=== PATIENT | male | born 1970 | race American Indian/Alaskan Native ===

== ENCOUNTER 2016-12-29 20:19 | Emergency (ER) | payer OTHER, MEDICAID ==
[2016-12-29 20:29] VITALS: BP 118/74
--- NOTE | 2016-12-29 21:36 | XRay Report ---
FINAL REPORT PROCEDURE: XR ANKLE 3 LT TECHNIQUE: LEFT ankle radiographs, AP, lateral, and oblique views. CPT 20994 HISTORY: LEFT ANKLE PAIN COMPARISON: No prior studies are available for comparison. FINDINGS: Fracture (s) and/or Dislocation(s): None. Alignment: Normal. Joint space(s): Normal. Soft tissues: Normal. Bone mineralization: Normal. Foreign bodies: None. Calcaneal spurring: None. IMPRESSION: Normal Examination.
--- NOTE | 2016-12-29 21:37 | XRay Report ---
FINAL REPORT PROCEDURE: XR SPINE LUMBOSACRAL 2-3V TECHNIQUE: Lumbar spine radiographs, frontal and lateral views. CPT 13337 HISTORY: LOWER BACK PAIN COMPARISON: No prior studies are available for comparison. FINDINGS: Alignment: Normal . Vertebral body heights/Disk spaces: Normal . Fracture(s): None . Facets: Normal . Bone mineralization: Normal . IMPRESSION: Normal Examination
[2016-12-29] MEDS ORDERED: TORADOL IM ONE (22:48)
[2016-12-29] MEDS ORDERED: DELTASONE PO ONE (22:52)
--- NOTE | 2016-12-29 22:52 | Emergency Department Report ---
ED Back Pain/Injury HPI - General Chief Complaint: Extremity Injury, Lower Stated Complaint: BACK/LEG PAIN Source: patient Limitations: No Limitations - History of Present Illness Initial Comments: 46-year-old -[place]ish male that's HIV positive has diabetes type 2 bipolar comes in status post fall at work yesterday. Patient reports he slipped on oil and water that was on the floor and fell landed on his back and buttocks. Patient now complains of back pain that radiates down both legs as well as left ankle pain. Patient reports that he is on triple risperidone Lamictal and Zyrtec and Flonase. Patient reports that he is a recovering addict and prefers not had any opiates. MD Complaint: back pain, fall -: days(s) (1) Similar Symptoms Previously: No Place: work Radiation: left leg, right leg Severity: severe Severity scale (0 -10): 9 Quality: burning, stabbing Consistency: constant Improves With: none Worsens With: sitting upright - Related Data Home Medications Medication Instructions Recorded Confirmed Last Taken Cetirizine HCl [ZyrTEC] 10 mg PO DAILY 12/29/16 12/29/16 1 Day Ago Efavirenz/Emtricitab/Tenofovir 1 each PO QDAY 12/29/16 12/29/16 12/29/16 [Atripla Tablet] Fluticasone [Flonase] 2 spray NS QDAY 12/29/16 12/29/16 12/29/16 Melatonin/Pyridoxine HCl (B6) 10 mg PO QHS 12/29/16 12/29/16 1 Day Ago [Melatonin 10 mg Tablet] lamoTRIgine [LaMICtal] 200 mg PO QDAY 12/29/16 12/29/16 12/29/16 risperiDONE [RisperDAL] 2 mg PO QHS 12/29/16 12/29/16 1 Day Ago Previous Rx's Medication Instructions Recorded Last Taken Type Naproxen [Naprosyn TAB] 500 mg PO BID #30 tablet 12/29/16 Unknown Rx methOCARBAMOL [Robaxin TAB] 500 mg PO BID #30 tab 12/29/16 Unknown Rx Allergies Allergy/AdvReac Type Severity Reaction Status Date / Time sulfamethoxazole Allergy Unknown Verified 12/29/16 20:35 [From Bactrim] trimethoprim [From Bactrim] Allergy Unknown Verified 12/29/16 20:35 ED Review of Systems ROS: Stated complaint: BACK/LEG PAIN Other details as noted in HPI Constitutional: denies: chills, fever Eyes: denies: eye pain, eye discharge, vision change ENT: denies: ear pain, throat pain Respiratory: denies: cough, shortness of breath, wheezing Cardiovascular: denies: chest pain, palpitations Endocrine: no symptoms reported Gastrointestinal: denies: abdominal pain, nausea, diarrhea Genitourinary: denies: urgency, dysuria Musculoskeletal: back pain, myalgia Skin: denies: rash, lesions Neurological: denies: headache, weakness, paresthesias Psychiatric: denies: anxiety, depression Hematological/Lymphatic: denies: easy bleeding, easy bruising ED Past Medical Hx - Past Medical History Hx Diabetes: Yes Hx Psychiatric Treatment: Yes (bipolar) Additional medical history: HIV - Surgical History Past Surgical History?: No - Social History Smoking Status: Unknown if ever smoked Substance Use Type: None - Medications Home Medications: Home Medications Medication Instructions Recorded Confirmed Last Taken Type Cetirizine HCl [ZyrTEC] 10 mg PO DAILY 12/29/16 12/29/16 1 Day Ago History Efavirenz/Emtricitab/Tenofovir 1 each PO QDAY 12/29/16 12/29/16 12/29/16 History [Atripla Tablet] Fluticasone [Flonase] 2 spray NS QDAY 12/29/16 12/29/16 12/29/16 History Melatonin/Pyridoxine HCl (B6) 10 mg PO QHS 12/29/16 12/29/16 1 Day Ago History [Melatonin 10 mg Tablet] Naproxen [Naprosyn TAB] 500 mg PO BID #30 tablet 12/29/16 Unknown Rx lamoTRIgine [LaMICtal] 200 mg PO QDAY 12/29/16 12/29/16 12/29/16 History methOCARBAMOL [Robaxin TAB] 500 mg PO BID #30 tab 12/29/16 Unknown Rx risperiDONE [RisperDAL] 2 mg PO QHS 12/29/16 12/29/16 1 Day Ago History ED Physical Exam - General Limitations: No Limitations General appearance: alert, in no apparent distress - Head Head exam: Present: atraumatic - Eye Eye exam: Present: normal appearance, PERRL, EOMI - ENT ENT exam: Present: normal exam, mucous membranes moist - Neck Neck exam: Present: normal inspection - Respiratory Respiratory exam: Present: normal lung sounds bilaterally - Cardiovascular Cardiovascular Exam: Present: regular rate, normal rhythm - GI/Abdominal GI/Abdominal exam: Absent: soft, tenderness - Extremities Exam Extremities exam: Present: normal inspection, full ROM - Back Exam Back exam: Present: normal inspection, full ROM, muscle spasm, paraspinal tenderness, vertebral tenderness (sacral coccyx) - Neurological Exam Neurological exam: Present: alert, oriented X3, CN II-XII intact - Psychiatric Psychiatric exam: Present: normal affect, normal mood - Skin Skin exam: Present: warm, dry, intact, normal color ED Course Vital Signs 12/29/16 12/29/16 20:28 20:30 Temperature 98.8 F 98.8 F Pulse Rate 68 68 Respiratory 18 18 Rate Blood Pressure 118/74 Blood Pressure 118/74 [Right] O2 Sat by Pulse 96 100 Oximetry - Reevaluation(s) Reevaluation #1: 12/29/16 23:28 Patient reports that the pain has improved since having the Toradol injection. ED Medical Decision Making - Medical Decision Making Patient has been evaluated by this provider fast track. Discussed with patient that his x-rays came back within normal limits. Discussed the patient we'll give him a Toradol injection to help with this pain as well as a prednisone one tablet to help with the inflammation. Discussed with patient that we would discharge him on Robaxin and naproxen for his back pain. Also recommend patient to take warm Epsom salt baths to help with the relief of his back pains. Discussed the patient we'll give him a work excuse until the for him to rest as much as possible Critical care attestation.: If time is entered above; I have spent that time in minutes in the direct care of this critically ill patient, excluding procedure time. ED Disposition Clinical Impression: Back pain with left-sided radiculopathy, Back pain with right-sided radiculopathy Fall Qualifiers: Encounter type: initial encounter Qualified Code(s): W19.XXXA - Unspecified fall, initial encounter Disposition: DISCHARGED TO HOME OR SELFCARE Is pt being admited?: No Does the pt Need Aspirin: No Condition: Stable Instructions: Fall Prevention (ED), Acute Low Back Pain (ED), Low Back Strain ( ED) Additional Instructions: Take pain medication as prescribed. Follow up with her primary care provider. The expected to have some discomfort for the next couple days. Also recommend warm hot soaks with Epsom salts may help with her back pain as well. Prescriptions: methOCARBAMOL [Robaxin TAB] 500 mg PO BID #30 tab Naproxen [Naprosyn TAB] 500 mg PO BID #30 tablet Referrals: PRIMARY MD JAVIER [Primary Care Provider] - 3-5 Days POLLO SOSA MD [Staff Physician] - 3-5 Days Forms: Work/School Release Form(ED)
== END 2016-12-29 23:38 | disposition home or self-care (01) ==
LOC: ED 20:19
DX: M54.16 Radiculopathy, lumbar region (principal); E11.9 Type 2 diabetes mellitus without complications; F31.9 Bipolar disorder, unspecified; Z88.2 Allergy status to sulfonamides; Z88.8 Allergy status to other drugs, medicaments and biological substances; W01.0XXA Fall on same level from slipping, tripping and stumbling without subsequent striking against object, initial encounter; Y93.89 Activity, other specified; Y92.89 Other specified places as the place of occurrence of the external cause; Y99.8 Other external cause status
CPT/HCPCS: 72100; 73610; 96372; 99283; J1885; J7512

== ENCOUNTER 2017-04-17 22:39 | Emergency (ER) | payer MEDICAID, OTHER ==
[2017-04-18 00:03] LABS: Basophils % (Auto) 0.4 % (0.0-1.8); Eosinophils % (Auto) 1.5 % (0.0-4.3); Hematocrit 40.5 % (35.5-45.6); Hemoglobin 13.4 gm/dl (11.8-15.2); Mean Corpuscular HGB Conc 33 % (32-34); Mean Corpuscular Hemoglobin 27 pg (28-32); Mean Corpuscular Volume 82 fl (84-94); Platelet Count 306 K/mm3 (140-440); Red Blood Count 4.95 M/mm3 (3.65-5.03); Red Cell Distribution Width 15.7 % (13.2-15.2); White Blood Count 14.6 K/mm3 (4.5-11.0)
[2017-04-18 00:23] LABS: Anion Gap 23 mmol/L; BUN/Creatinine Ratio 12.85; Blood Urea Nitrogen 9 mg/dL (9-20); Calcium 9.3 mg/dL (8.4-10.2); Carbon Dioxide 20 mmol/L (22-30); Chloride 95.4 mmol/L (98-107); Glucose 74 mg/dL (75-100); Potassium 4.5 mmol/L (3.6-5.0); Sodium 134 mmol/L (137-145)
[2017-04-18] MEDS ORDERED: NACL 0.9% 1000 ML 1,000 ML IV ONE (00:43)
[2017-04-18] MEDS ORDERED: MOTRIN PO ONE (00:43)
[2017-04-18 00:50] LABS: Urine Drugs of Abuse Note Disclamer
--- NOTE | 2017-04-18 01:07 | Emergency Department Report ---
ED Psych HPI - General Chief Complaint: Psych Stated Complaint: MH Time Seen by Provider: 04/17/17 22:54 Source: patient, family Mode of arrival: Ambulatory Limitations: Other - History of Present Illness Initial Comments: 47-year-old male with a past medical history of diabetes, bipolar disease, and HIV with undetectable viral load presents to the hospital with complaints of manic episodes 4 days. Patient is accompanied by his family members who state that patient has not been eating, sleeping, and has been exhibiting erratic behavior the past 4 days. I also suspect he has been noncompliant with his medications 4 days. Patient denies suicidal ideation, homicidal ideation, or hallucinations. Complains of right lower back pain which is ongoing since injury several months ago. Patient states he is currently taking tramadol but he does not want that medication anymore since it is a "habit-forming narcotic. " Patient states he is taking his medications which contradicts the family's history. Patient often goes on unrelated tangents when asked direct questions. - Related Data Home Medications Medication Instructions Recorded Confirmed Last Taken Cetirizine HCl [ZyrTEC] 10 mg PO DAILY 12/29/16 04/17/17 04/16/17 Efavirenz/Emtricitab/Tenofovir 1 each PO QDAY 12/29/16 04/17/17 04/16/17 [Atripla Tablet] Fluticasone [Flonase] 2 spray NS QDAY 12/29/16 04/17/17 04/16/17 Melatonin/Pyridoxine HCl (B6) 10 mg PO QHS 12/29/16 04/17/17 04/16/17 [Melatonin 10 mg Tablet] lamoTRIgine [LaMICtal] 200 mg PO QDAY 12/29/16 04/18/17 04/17/17 risperiDONE [RisperDAL] 2 mg PO QHS 12/29/16 04/18/17 04/17/17 Previous Rx's Medication Instructions Recorded Last Taken Type Naproxen [Naprosyn TAB] 500 mg PO BID #30 tablet 12/29/16 04/17/17 Rx methOCARBAMOL [Robaxin TAB] 500 mg PO BID #30 tab 12/29/16 04/17/17 Rx Allergies Allergy/AdvReac Type Severity Reaction Status Date / Time sulfamethoxazole Allergy Unknown Verified 12/29/16 20:35 [From Bactrim] trimethoprim [From Bactrim] Allergy Unknown Verified 12/29/16 20:35 ED Review of Systems ROS: Stated complaint: MH Other details as noted in HPI Comment: All other systems reviewed and negative Other: Constitutional: No fevers chills or weight loss Eyes: No eye pain visual changes or discharge ENT: No ear pain or throat pain Neck: Denies pain Respiratory: Denies cough wheezing shortness of breath Cardiovascular: Denies chest pain, palpitations, syncope GI: Denies abdominal pain, nausea, vomiting, diarrhea : Denies dysuria Musculoskeletal: As per HPI Skin: Denies rash, lesions, erythema Neurologic: Denies headache, numbness, weakness Psychiatric: Denies suicidal ideation, hallucinations ED Past Medical Hx - Past Medical History Previous Medical History?: Yes Hx Diabetes: Yes Hx Psychiatric Treatment: Yes (bipolar) Additional medical history: HIV - Surgical History Past Surgical History?: No - Social History Smoking Status: Never Smoker - Medications Home Medications: Home Medications Medication Instructions Recorded Confirmed Last Taken Type Cetirizine HCl [ZyrTEC] 10 mg PO DAILY 12/29/16 04/17/17 04/16/17 History Efavirenz/Emtricitab/Tenofovir 1 each PO QDAY 12/29/16 04/17/17 04/16/17 History [Atripla Tablet] Fluticasone [Flonase] 2 spray NS QDAY 12/29/16 04/17/17 04/16/17 History Melatonin/Pyridoxine HCl (B6) 10 mg PO QHS 12/29/16 04/17/17 04/16/17 History [Melatonin 10 mg Tablet] Naproxen [Naprosyn TAB] 500 mg PO BID #30 tablet 12/29/16 04/18/17 04/17/17 Rx lamoTRIgine [LaMICtal] 200 mg PO QDAY 12/29/16 04/18/17 04/17/17 History methOCARBAMOL [Robaxin TAB] 500 mg PO BID #30 tab 12/29/16 04/18/17 04/17/17 Rx risperiDONE [RisperDAL] 2 mg PO QHS 12/29/16 04/18/17 04/17/17 History ED Physical Exam - General Limitations: No Limitations - Other Other exam information: General: No limitations, patient is alert in no acute distress Head exam: Atraumatic, normocephalic Eyes exam: Normal appearance, pupils equal reactive to light ENT: Moist mucous membrane, normal oropharynx Neck exam: Normal inspection, full range of motion, no meningismus nontender Respiratory exam: Clear to auscultation bilateral, no wheezes, rales, crackles Cardiovascular: Normal rate and rhythm, normal heart sounds Abdomen: Soft, nondistended, and nontender, with normal bowel sounds, no rebound, or guarding Extremity: Full range of motion normal inspection no deformity Back: Normal Inspection, full range of motion, right lower back/sacral tenderness. No midline tenderness Neurologic: Alert, oriented x3, cranial nerves intact, no motor or sensory deficit Psychiatric: Cooperative, noncombative, tangential thoughts Skin: Warm, dry, intact ED Course Vital Signs 04/17/17 23:38 Temperature 98.9 F Pulse Rate 98 H Respiratory 18 Rate Blood Pressure 131/71 [Left] O2 Sat by Pulse 98 Oximetry - Reevaluation(s) Reevaluation #1: 04/18/17 01:15 Current medicines be continued. ED Medical Decision Making - Lab Data Result diagrams: 04/17/17 23:42 04/17/17 23:42 Lab Results 04/17/17 04/17/17 04/17/17 Range/Units 23:35 23:38 23:42 WBC (4.5-11.0) K/mm3 RBC (3.65-5.03) M/mm3 Hgb (11.8-15.2) gm/dl Hct (35.5-45.6) % MCV (84-94) fl MCH (28-32) pg MCHC (32-34) % RDW (13.2-15.2) % Plt Count (140-440) K/mm3 Lymph % (Auto) (13.4-35.0) % [place] % (Auto) (0.0-7.3) % Eos % (Auto) (0.0-4.3) % Baso % (Auto) (0.0-1.8) % Lymph # (1.2-5.4) K/mm3 [place] # (0.0-0.8) K/mm3 Eos # (0.0-0.4) K/mm3 Baso # (0.0-0.1) K/mm3 Seg Neutrophils % (40.0-70.0) % Seg Neutrophils # (1.8-7.7) K/mm3 Sodium 134 L (137-145) mmol/L Potassium 4.5 (3.6-5.0) mmol/L Chloride 95.4 L (98-107) mmol/L Carbon Dioxide 20 L (22-30) mmol/L Anion Gap 23 mmol/L BUN 9 (9-20) mg/dL Creatinine 0.7 L (0.8-1.5) mg/dL Estimated GFR > 60 ml/min BUN/Creatinine Ratio 12.85 % Glucose 74 L (75-100) mg/dL Calcium 9.3 (8.4-10.2) mg/dL Urine Color Yellow (Yellow) Urine Turbidity Clear (Clear) Urine pH 5.0 (5.0-7.0) Ur Specific [place] 1.008 (1.003-1.030) Urine Protein <15 mg/dl (Negative) mg/dL Urine Glucose (UA) Neg (Negative) mg/dL Urine Ketones 20 (Negative) mg/dL Urine Blood Mod (Negative) Urine Nitrite Neg (Negative) Urine Bilirubin Neg (Negative) Urine Urobilinogen < 2.0 (<2.0) mg/dL Ur Leukocyte Esterase Tr (Negative) Urine WBC (Auto) 1.0 (0.0-6.0) /HPF Urine RBC (Auto) 3.0 (0.0-6.0) /HPF U Epithel Cells (Auto) < 1.0 (0-13.0) /HPF Urine Mucus Few /HPF Urine Opiates Screen Presumptive negative Urine Methadone Screen Presumptive negative Ur Barbiturates Screen Presumptive negative Ur Phencyclidine Scrn Presumptive negative Ur Amphetamines Screen Presumptive negative U Benzodiazepines Scrn Presumptive negative Urine Cocaine Screen Presumptive negative U Marijuana (THC) Screen Presumptive negative Plasma/Serum Alcohol (0-0.07) gm% 04/17/17 04/17/17 Range/Units 23:42 23:42 WBC 14.6 H (4.5-11.0) K/mm3 RBC 4.95 (3.65-5.03) M/mm3 Hgb 13.4 (11.8-15.2) gm/dl Hct 40.5 (35.5-45.6) % MCV 82 L (84-94) fl MCH 27 L (28-32) pg MCHC 33 (32-34) % RDW 15.7 H (13.2-15.2) % Plt Count 306 (140-440) K/mm3 Lymph % (Auto) 17.6 (13.4-35.0) % [place] % (Auto) 8.0 H (0.0-7.3) % Eos % (Auto) 1.5 (0.0-4.3) % Baso % (Auto) 0.4 (0.0-1.8) % Lymph # 2.6 (1.2-5.4) K/mm3 [place] # 1.2 H (0.0-0.8) K/mm3 Eos # 0.2 (0.0-0.4) K/mm3 Baso # 0.1 (0.0-0.1) K/mm3 Seg Neutrophils % 72.5 H (40.0-70.0) % Seg Neutrophils # 10.5 H (1.8-7.7) K/mm3 Sodium (137-145) mmol/L Potassium (3.6-5.0) mmol/L Chloride (98-107) mmol/L Carbon Dioxide (22-30) mmol/L Anion Gap mmol/L BUN (9-20) mg/dL Creatinine (0.8-1.5) mg/dL Estimated GFR ml/min BUN/Creatinine Ratio % Glucose (75-100) mg/dL Calcium (8.4-10.2) mg/dL Urine Color (Yellow) Urine Turbidity (Clear) Urine pH (5.0-7.0) Ur Specific [place] (1.003-1.030) Urine Protein (Negative) mg/dL Urine Glucose (UA) (Negative) mg/dL Urine Ketones (Negative) mg/dL Urine Blood (Negative) Urine Nitrite (Negative) Urine Bilirubin (Negative) Urine Urobilinogen (<2.0) mg/dL Ur Leukocyte Esterase (Negative) Urine WBC (Auto) (0.0-6.0) /HPF Urine RBC (Auto) (0.0-6.0) /HPF U Epithel Cells (Auto) (0-13.0) /HPF Urine Mucus /HPF Urine Opiates Screen Urine Methadone Screen Ur Barbiturates Screen Ur Phencyclidine Scrn Ur Amphetamines Screen U Benzodiazepines Scrn Urine Cocaine Screen U Marijuana (THC) Screen Plasma/Serum Alcohol < 0.01 (0-0.07) gm% - Medical Decision Making Patient states he is taking his medications however, family states he has not has medications to 4 days. Patient goals often unrelated tenderness with direct questions. Based on his current presentation and behavior as reported to family, 1013 and transfer form will be signed and patient will be transferred to psychiatric facility. 1 L normal saline ordered for mild hyponatremia/hypochloremia. - Differential Diagnosis bipolar, psychosis, medication noncompliance Critical Care Time: No Critical care attestation.: If time is entered above; I have spent that time in minutes in the direct care of this critically ill patient, excluding procedure time. ED Disposition Clinical Impression: Manic episode, HIV (human immunodeficiency virus infection), Medical clearance for psychiatric admission Disposition: [id number]/[id number] PSY HOSP/PSY UNIT Is pt being admited?: No Does the pt Need Aspirin: No Condition: Stable Time of Disposition: 01:07 (awaiting acceptance)
[2017-04-18 01:09] LABS: Bilirubin,Urine NEG (Negative); Blood,Urine MOD (Negative); Ketones,Urine 20 mg/dL (Negative); Leukocyte Esterase,Urine TR (Negative); Mucus,Urine FEW /HPF; Nitrite,Urine NEG (Negative); Protein,Urine <15 mg/dL mg/dL (Negative); Urobilinogen,Urine < 2.0 mg/dL (<2.0)
[2017-04-18] MEDS ORDERED: RisperDAL PO ONE (01:15)
[2017-04-18] MEDS ORDERED: LaMICtal PO SCH (10:00)
[2017-04-18] MEDS ORDERED: NAPROSYN PO SCH (10:00)
[2017-04-18] MEDS ORDERED: ROBAXIN PO SCH (10:00)
[2017-04-18] MEDS ORDERED: CLARITIN PO SCH (10:00)
[2017-04-18] MEDS ORDERED: FLONASE NS SCH (10:00)
[2017-04-18] MEDS ORDERED: ATRIPLA (NF) PO SCH ×2 (10:00)
[2017-04-18 11:40] VITALS: BP 120/78
--- NOTE | 2017-04-18 14:30 | Consultation ---
History of Present Illness - Reason for Consult Consult date: 04/18/17 Reason for consult: psychiatric evaluation - Chief Complaint Chief complaint: "I fell at work." 47-year-old male seen for psychiatric evaluation. He has a past medical history of diabetes, bipolar disease, and HIV with undetectable viral load. He presented to the hospital with complaints of manic episodes 4 days. Per the record, the patient was accompanied by his family members who stated that patient has not been eating, sleeping, and has been exhibiting erratic behavior the past 4 days. He has to be redirected frequently to complete the interview. He was tangential in discussing how he thinks tramadol made him manic. He repeatedly stated he did not want tramadol or any narcotics. He reports being 10 years sober from alcohol. His usual medications are Risperdal 2mg hs and lamictal 200mg daily. No psychotic symptoms currently. Medications and Allergies Allergies Allergy/AdvReac Type Severity Reaction Status Date / Time sulfamethoxazole Allergy Unknown Verified 12/29/16 20:35 [From Bactrim] trimethoprim [From Bactrim] Allergy Unknown Verified 12/29/16 20:35 Home Medications Medication Instructions Recorded Confirmed Last Taken Type Cetirizine HCl [ZyrTEC] 10 mg PO DAILY 12/29/16 04/17/17 04/16/17 History Efavirenz/Emtricitab/Tenofovir 1 each PO QDAY 12/29/16 04/17/17 04/16/17 History [Atripla Tablet] Fluticasone [Flonase] 2 spray NS QDAY 12/29/16 04/17/17 04/16/17 History Melatonin/Pyridoxine HCl (B6) 10 mg PO QHS 12/29/16 04/17/17 04/16/17 History [Melatonin 10 mg Tablet] Naproxen [Naprosyn TAB] 500 mg PO BID #30 tablet 12/29/16 04/18/17 04/17/17 Rx lamoTRIgine [LaMICtal] 200 mg PO QDAY 12/29/16 04/18/17 04/17/17 History methOCARBAMOL [Robaxin TAB] 500 mg PO BID #30 tab 12/29/16 04/18/17 04/17/17 Rx risperiDONE [RisperDAL] 2 mg PO QHS 12/29/16 04/18/17 04/17/17 History Past psychiatric history - Past Medical History Past Medical History: diabetes, hepatitis, HIV/AIDS - past Psychiatric treatment and history Psych: Bipolar psychiatric treatment history: 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 UDS and ETOH negative) Mental Status Exam - Vital signs Last Vital Signs Temp 98.4 F 04/18/17 10:00 Pulse 101 H 04/18/17 10:00 Resp 18 04/18/17 10:00 BP 120/78 04/18/17 10:00 Pulse Ox 99 04/18/17 10:00 - Exam Orientation: time, place, person Affect: other (expansive) Mood: euphoric Thought content: other (overinclusive) Thought Process: Circumstantial, Tangential Perceptions: none Speech: pressured Concentration: unable to pay attention Motor activity: restless Level of consciousness: alert Memory: Intact Sleep Symptoms: Insomnia Interaction: cooperative Results Result Diagrams: 04/17/17 23:42 04/17/17 23:42 Abnormal lab results 04/17/17 04/17/17 Range/Units 23:42 23:42 WBC 14.6 H (4.5-11.0) K/mm3 MCV 82 L (84-94) fl MCH 27 L (28-32) pg RDW 15.7 H (13.2-15.2) % [place] % (Auto) 8.0 H (0.0-7.3) % [place] # 1.2 H (0.0-0.8) K/mm3 Seg Neutrophils % 72.5 H (40.0-70.0) % Seg Neutrophils # 10.5 H (1.8-7.7) K/mm3 Sodium 134 L (137-145) mmol/L Chloride 95.4 L (98-107) mmol/L Carbon Dioxide 20 L (22-30) mmol/L Creatinine 0.7 L (0.8-1.5) mg/dL Glucose 74 L (75-100) mg/dL All other labs normal. Assessment and Plan Assessment and plan: Impression: bipolar 1, current episode manic no suicidal or homicidal ideation present but clearly needs stabilization of mood Recommendation: Transfer to inpatient psychiatric facility. Continue home medications.
[2017-04-18] MEDS ORDERED: PYRIDOXINE HCL PO SCH (22:00)
[2017-04-18] MEDS ORDERED: MELATONIN PO SCH (22:00)
[2017-04-18] MEDS ORDERED: RisperDAL PO SCH (22:00)
== END 2017-04-18 13:22 ==
LOC: ED 22:39
DX: F31.9 Bipolar disorder, unspecified (principal); M54.5 Low back pain; E11.9 Type 2 diabetes mellitus without complications; Z88.2 Allergy status to sulfonamides; Z88.1 Allergy status to other antibiotic agents
CPT/HCPCS: 36415; 80048; 80307; 81001; 85025; 96360; 99285; G0480; J7030; 80320

== ENCOUNTER 2022-01-08 18:36 | Emergency (ER) | payer MEDICAID ==
[2022-01-08 20:34] LABS: Basophils # (Auto) 0.1 K/mm3 (0.0-0.1); Basophils % (Auto) 0.5 % (0.0-1.8); Eosinophils % (Auto) 0.2 % (0.0-4.3); Hematocrit 44.6 % (35.5-45.6); Hemoglobin 14.3 gm/dl (11.8-15.2); Lymphocytes # (Auto) 2.7 K/mm3 (1.2-5.4); Lymphocytes % (Auto) 15.5 % (13.4-35.0); Mean Corpuscular HGB Conc 32 % (32-34); Mean Corpuscular Volume 82 fl (84-94); Monocytes # (Auto) 1.1 K/mm3 (0.0-0.8); Monocytes % (Auto) 6.2 % (0.0-7.3); Platelet Count 365 K/mm3 (140-440); Red Blood Count 5.43 M/mm3 (3.65-5.03); Red Cell Distribution Width 15.6 % (13.2-15.2)
[2022-01-08 20:52] LABS: BUN/Creatinine Ratio 10; Blood Urea Nitrogen 10 mg/dL (9-20); Calcium 9.3 mg/dL (8.4-10.2); Hemolysis Index 4
--- NOTE | 2022-01-08 21:47 | Emergency Department Report ---
ED Psych HPI - General Chief Complaint: Altered Mental Status Stated Complaint: BIPOLAR EPISODE Time Seen by Provider: 01/08/22 19:27 Source: patient Mode of arrival: Ambulatory - History of Present Illness Initial Comments: pt has history of psychosis meds were recenlt changed reports hallucination but no SI or HI , Complaint: other -: days(s) Associated Psychiatric Symptoms: auditory hallucinations History of same: Yes Quality: intermittent Context: new medication(s) Associated Symptoms: denies: denies other symptoms, confusion, headache - Related Data Home Medications Medication Instructions Recorded Confirmed Last Taken Cetirizine HCl [ZyrTEC] 10 mg PO DAILY 12/29/16 04/17/17 04/16/17 Efavirenz/Emtricit/Tenofovr Df 1 each PO QDAY 12/29/16 04/17/17 04/16/17 [Atripla Tablet] Fluticasone [Flonase] 2 spray NS QDAY 12/29/16 04/17/17 04/16/17 Melatonin/Pyridoxine HCl (B6) 10 mg PO QHS 12/29/16 04/17/17 04/16/17 [Melatonin 10 mg Tablet] lamoTRIgine [LaMICtal] 200 mg PO QDAY 12/29/16 04/18/17 04/17/17 risperiDONE [RisperDAL] 2 mg PO QHS 12/29/16 04/18/17 04/17/17 Previous Rx's Medication Instructions Recorded Last Taken Type Naproxen [Naprosyn TAB] 500 mg PO BID #30 tablet 12/29/16 04/17/17 Rx methOCARBAMOL [Robaxin TAB] 500 mg PO BID #30 tab 12/29/16 04/17/17 Rx Allergies Allergy/AdvReac Type Severity Reaction Status Date / Time sulfamethoxazole Allergy Unknown Verified 12/29/16 20:35 [From Bactrim] trimethoprim [From Bactrim] Allergy Unknown Verified 12/29/16 20:35 ED Review of Systems ROS: Stated complaint: BIPOLAR EPISODE Other details as noted in HPI Constitutional: denies: chills, fever Eyes: denies: eye pain, eye discharge, vision change ENT: denies: ear pain, throat pain Respiratory: denies: cough, shortness of breath, wheezing Cardiovascular: denies: chest pain, palpitations Endocrine: no symptoms reported Gastrointestinal: denies: abdominal pain, nausea, diarrhea Genitourinary: denies: urgency, dysuria Musculoskeletal: denies: back pain, joint swelling, arthralgia Skin: denies: rash, lesions Neurological: denies: headache, weakness, paresthesias Psychiatric: denies: anxiety, depression Hematological/Lymphatic: denies: easy bleeding, easy bruising ED Past Medical Hx - Past Medical History Hx Diabetes: Yes Hx Psychiatric Treatment: Yes (bipolar) Additional medical history: HIV - Social History Smoking Status: Former Smoker - Medications Home Medications: Home Medications Medication Instructions Recorded Confirmed Last Taken Type Cetirizine HCl [ZyrTEC] 10 mg PO DAILY 12/29/16 04/17/17 04/16/17 History Efavirenz/Emtricit/Tenofovr Df 1 each PO QDAY 12/29/16 04/17/17 04/16/17 History [Atripla Tablet] Fluticasone [Flonase] 2 spray NS QDAY 12/29/16 04/17/17 04/16/17 History Melatonin/Pyridoxine HCl (B6) 10 mg PO QHS 12/29/16 04/17/17 04/16/17 History [Melatonin 10 mg Tablet] Naproxen [Naprosyn TAB] 500 mg PO BID #30 tablet 12/29/16 04/18/17 04/17/17 Rx lamoTRIgine [LaMICtal] 200 mg PO QDAY 12/29/16 04/18/17 04/17/17 History methOCARBAMOL [Robaxin TAB] 500 mg PO BID #30 tab 12/29/16 04/18/17 04/17/17 Rx risperiDONE [RisperDAL] 2 mg PO QHS 12/29/16 04/18/17 04/17/17 History ED Physical Exam - General Limitations: Altered Mental Status General appearance: alert, in no apparent distress - Head Head exam: Present: atraumatic, normocephalic - Eye Eye exam: Present: normal appearance - ENT ENT exam: Present: mucous membranes moist - Neck Neck exam: Present: normal inspection - Respiratory Respiratory exam: Present: normal lung sounds bilaterally. Absent: respiratory distress - Cardiovascular Cardiovascular Exam: Present: regular rate, normal rhythm. Absent: systolic murmur, diastolic murmur, rubs, gallop - GI/Abdominal GI/Abdominal exam: Present: soft, normal bowel sounds - Rectal Rectal exam: Present: deferred - Extremities Exam Extremities exam: Present: normal inspection - Back Exam Back exam: Present: normal inspection - Neurological Exam Neurological exam: Present: alert, oriented X3 - Psychiatric Psychiatric exam: Present: flat affect - Skin Skin exam: Present: warm, dry, intact, normal color. Absent: rash ED Course Vital Signs 01/08/22 01/08/22 01/08/22 19:13 20:01 20:16 Temperature 98.4 F 97.4 F L Pulse Rate 118 H 88 88 Respiratory 16 19 18 Rate Blood Pressure 154/96 Blood Pressure 161/104 154/96 148/96 [Right] O2 Sat by Pulse 99 99 99 Oximetry 01/09/22 01/09/22 01/09/22 09:21 11:01 14:06 Temperature 97.2 F L 99.7 F H Pulse Rate 70 100 H Respiratory 18 18 20 Rate Blood Pressure Blood Pressure 165/93 135/97 [Right] O2 Sat by Pulse 97 98 98 Oximetry ED Medical Decision Making - Lab Data Result diagrams: 01/08/22 19:57 01/08/22 19:57 Critical care attestation.: If time is entered above; I have spent that time in minutes in the direct care of this critically ill patient, excluding procedure time. ED Disposition Clinical Impression: Encounter for medical screening examination, Encounter for behavioral health screening Disposition: 01 HOME / SELF CARE / HOMELESS Is pt being admited?: No Does the pt Need Aspirin: No Condition: Good Additional Instructions: Please follow-up with an outpatient mental health specialist within the next week. Avoid consumption of alcohol, tobacco, smoke products and recreational drugs. Please return to the emergency room right away with new pain, worsened pain, migration of pain, projectile vomiting, change in mental status, confusion, inability tolerate liquid feeds, new, worsened or different symptoms not present on the initial emergency room evaluation Pprofessional and Agency Contacts To help [facility] (30/03) [place] Crisis Line: Suicide Prevention Line: Crisis Text Line: Text ``[place] to 537314 Emergency: 911 Outpatient COMMUNITY Behavioral Health Resources: DEKALB: [facility] [address] [place] [id number] FERNANDO [facility] [address] [place] [address] Thursday thru Thursday - 8am - 5pm Call to schedule an assessment for mental health and substance abuse programs [facility] Address: [address] [place] [address] Thursday thru Thursday- 7am-2pm [facility] Address: [address], [place] [address] Thursday thru Thursday: 8:30AM-5PM OUTPATIENT MENTAL HEALTH RESOURCES [facility], [facility] Jayme Cruz MD: [address], [address] [place] [address] [place] [address] [facility]: [facility] [address] [place] [address] [place] [address] [phone] [facility]: [facility] Healthcare: [address] [facility] [address] [facility] [place] [address] [facility] [address] [facility]: Dusty Merrill MD: [address] [facility] [address] [facility] [id number] [facility]: [address] [place] [address] [phone] [place] CRISIS AND ACCESS LINE: Referrals: [facility] [Outside] - 3-5 Days [facility] [Outside] - 3-5 Days PETRA MENG MD [Primary Care Provider] - 3-5 Days
--- NOTE | 2022-01-09 10:15 | Consultation ---
History of Present Illness - Reason for Consult Consult date: 01/09/22 Reason for consult: mental health evaluation - History of Present Psychiatric Illness The patient is a 51 year old male with history of bipolar and PTSD who presents to the ED with hallucinations. In my encounter with the patient, he is calm, alert and oriented x2. The patient states " they said I need some sleep." he reports that he see a psychiatrist monthly and his medication was recently villareal ged. The patient denies any current suicidal/homicidal ideation and denies hallucinations. AST PSYCHIATRIC HISTORY Diagnoses:Bipolar, PTSD Suicide attempts or Self-harm behavior: Denies Prior psychiatric hospitalizations:Yes Substance Abuse history:marijuana, crack, alcohol Previous psychiatric medications tried: Gabapentin, Lamictal Outpatient treatment:unknown PAST MEDICAL HISTORY: none reported Family Psychiatric History: None reported or documented SOCIAL HISTORY Marital Status: Single Living Arrangements: Lives with father Employment Status: Unemployed Access to guns/weapons: Denies Education: 12th grade History of Abuse: none reported Legal History: none reported REVIEW OF SYSTEMS Constitutional: Negative for weight loss ENT: Negative for stridor Respiratory: Negative for cough or hemoptysis All other systems reviewed and are negative MENTAL STATUS EXAMINATION General Appearance and Behavior: Age appropriate, good hygiene, wearing appropriate clothes, poor eye contact, cooperative polite with questioning. Cooperation: Participating/engaged, guarded Psychomotor Behavior: unremarkable and within normal limits Mood: Ok Affect and affective range: congruent with mood Thought Process: Goal directed Thought Content: Reality oriented Speech: Normal volume, Regular rate and rhythm Intellectual Functioning: Average Suicidal Ideation: Denies Homicidal Ideation: Denies Hallucinations: Denies Delusions: None Impulse Control: Normal Insight and Judgment: Limited insight and judgment, Memory: Normal, Attention: Normal, Orientation: Alert, oriented, Assessment and Plan (1) Hx of Bipolar (2) Current Visit: Yes Status: Acute Treatment Dc 1013 Continue home meds Sitter: Per primary Medical: Per primary Disposition: Do not recommend acute inpatient psychiatric treatment. [facility] Account Executive will provide patient with psychiatric out-patient resources. Case staffed with Dr. Ceron Will sign off. Thank you Medications and Allergies Medications and Allergies Allergies Allergy/AdvReac Type Severity Reaction Status Date / Time sulfamethoxazole Allergy Unknown Verified 12/29/16 20:35 [From Bactrim] trimethoprim [From Bactrim] Allergy Unknown Verified 12/29/16 20:35 Home Medications Medication Instructions Recorded Confirmed Last Taken Type Cetirizine HCl [ZyrTEC] 10 mg PO DAILY 12/29/16 04/17/17 04/16/17 History Efavirenz/Emtricit/Tenofovr Df 1 each PO QDAY 12/29/16 04/17/17 04/16/17 History [Atripla Tablet] Fluticasone [Flonase] 2 spray NS QDAY 12/29/16 04/17/17 04/16/17 History Melatonin/Pyridoxine HCl (B6) 10 mg PO QHS 12/29/16 04/17/17 04/16/17 History [Melatonin 10 mg Tablet] Naproxen [Naprosyn TAB] 500 mg PO BID #30 tablet 12/29/16 04/18/17 04/17/17 Rx lamoTRIgine [LaMICtal] 200 mg PO QDAY 12/29/16 04/18/17 04/17/17 History methOCARBAMOL [Robaxin TAB] 500 mg PO BID #30 tab 12/29/16 04/18/17 04/17/17 Rx risperiDONE [RisperDAL] 2 mg PO QHS 12/29/16 04/18/17 04/17/17 History Mental Status Exam - Vital signs Last Vital Signs Temp 97.2 F L 01/09/22 09:21 Pulse 70 01/09/22 09:21 Resp 18 01/09/22 09:21 BP 165/93 01/09/22 09:21 Pulse Ox 97 01/09/22 09:21 Results Result Diagrams: 01/08/22 19:57 01/08/22 19:57 Abnormal lab results 01/08/22 01/08/22 01/08/22 Range/Units 19:57 19:57 19:57 WBC 17.5 H (4.5-11.0) K/mm3 RBC 5.43 H (3.65-5.03) M/mm3 MCV 82 L (84-94) fl MCH 26 L (28-32) pg RDW 15.6 H (13.2-15.2) % [place] # (Auto) 1.1 H (0.0-0.8) K/mm3 Seg Neutrophils % 77.6 H (40.0-70.0) % Seg Neutrophils # 13.6 H (1.8-7.7) K/mm3 Carbon Dioxide 19 L (22-30) mmol/L Salicylates < 0.3 L (2.8-20.0) mg/dL Acetaminophen (10.0-30.0) ug/mL 01/08/22 Range/Units 19:57 WBC (4.5-11.0) K/mm3 RBC (3.65-5.03) M/mm3 MCV (84-94) fl MCH (28-32) pg RDW (13.2-15.2) % [place] # (Auto) (0.0-0.8) K/mm3 Seg Neutrophils % (40.0-70.0) % Seg Neutrophils # (1.8-7.7) K/mm3 Carbon Dioxide (22-30) mmol/L Salicylates (2.8-20.0) mg/dL Acetaminophen 5.0 L (10.0-30.0) ug/mL All other labs normal.
--- NOTE | 2022-01-09 12:35 | Event Note ---
Date: 01/09/22 The patient was evaluated in the emergency department for symptoms described in the history of present illness. He/she was evaluated in the context of the global COVID-19 pandemic, which necessitated consideration that the patient might be at risk for infection with the virus that causes COVID-19. Institutional protocols and algorithms that pertain to the evaluation of patients at risk for COVID-19 are in a state of rapid change based on information released by regulatory bodies including the CDC and federal and state organizations. These policies and algorithms were followed during the patient's care in the emergency department. Please note that these policies, procedures and recommendations changed on a rapid basis. Laboratory studies, vital signs, nursing documentation, ER documentation, and psychiatric documentation are reviewed and appreciated. Nursing team reports no acute events this morning or concerns. The patient is awake and ambulating and does not appear to be in any acute distress. The patient was deemed medically suitable for psychiatric disposition and placement during his initial ER evaluation. The patient continues to remain medically suitable for psychiatric placement and disposition. Psychiatry team have recommended outpatient discharge. As per ER documentation, patient denies urinary symptoms. He is not hypoxic at this time. Leukocytosis is chronic, and likely stress reaction. Vital Signs 01/08/22 01/08/22 01/08/22 19:13 20:01 20:16 Temperature 98.4 F 97.4 F L Pulse Rate 118 H 88 88 Respiratory 16 19 18 Rate Blood Pressure 154/96 Blood Pressure 161/104 154/96 148/96 [Right] O2 Sat by Pulse 99 99 99 Oximetry 01/09/22 01/09/22 09:21 11:01 Temperature 97.2 F L Pulse Rate 70 Respiratory 18 18 Rate Blood Pressure Blood Pressure 165/93 [Right] O2 Sat by Pulse 97 98 Oximetry Lab Results 01/08/22 01/08/22 01/08/22 Range/Units 19:57 19:57 19:57 WBC 17.5 H (4.5-11.0) K/mm3 RBC 5.43 H (3.65-5.03) M/mm3 Hgb 14.3 (11.8-15.2) gm/dl Hct 44.6 (35.5-45.6) % MCV 82 L (84-94) fl MCH 26 L (28-32) pg MCHC 32 (32-34) % RDW 15.6 H (13.2-15.2) % Plt Count 365 (140-440) K/mm3 Lymph % (Auto) 15.5 (13.4-35.0) % [place] % (Auto) 6.2 (0.0-7.3) % Eos % (Auto) 0.2 (0.0-4.3) % Baso % (Auto) 0.5 (0.0-1.8) % Lymph # (Auto) 2.7 (1.2-5.4) K/mm3 [place] # (Auto) 1.1 H (0.0-0.8) K/mm3 Eos # (Auto) 0.0 (0.0-0.4) K/mm3 Baso # (Auto) 0.1 (0.0-0.1) K/mm3 Seg Neutrophils % 77.6 H (40.0-70.0) % Seg Neutrophils # 13.6 H (1.8-7.7) K/mm3 Sodium 142 (137-145) mmol/L Potassium 3.8 (3.6-5.0) mmol/L Chloride 105.0 (98-107) mmol/L Carbon Dioxide 19 L (22-30) mmol/L Anion Gap 22 mmol/L BUN 10 (9-20) mg/dL Creatinine 1.0 (0.8-1.3) mg/dL Estimated GFR > 60 ml/min BUN/Creatinine Ratio 10 % Glucose 98 (75-100) mg/dL Calcium 9.3 (8.4-10.2) mg/dL Salicylates < 0.3 L (2.8-20.0) mg/dL Acetaminophen (10.0-30.0) ug/mL 01/08/22 Range/Units 19:57 WBC (4.5-11.0) K/mm3 RBC (3.65-5.03) M/mm3 Hgb (11.8-15.2) gm/dl Hct (35.5-45.6) % MCV (84-94) fl MCH (28-32) pg MCHC (32-34) % RDW (13.2-15.2) % Plt Count (140-440) K/mm3 Lymph % (Auto) (13.4-35.0) % [place] % (Auto) (0.0-7.3) % Eos % (Auto) (0.0-4.3) % Baso % (Auto) (0.0-1.8) % Lymph # (Auto) (1.2-5.4) K/mm3 [place] # (Auto) (0.0-0.8) K/mm3 Eos # (Auto) (0.0-0.4) K/mm3 Baso # (Auto) (0.0-0.1) K/mm3 Seg Neutrophils % (40.0-70.0) % Seg Neutrophils # (1.8-7.7) K/mm3 Sodium (137-145) mmol/L Potassium (3.6-5.0) mmol/L Chloride (98-107) mmol/L Carbon Dioxide (22-30) mmol/L Anion Gap mmol/L BUN (9-20) mg/dL Creatinine (0.8-1.3) mg/dL Estimated GFR ml/min BUN/Creatinine Ratio % Glucose (75-100) mg/dL Calcium (8.4-10.2) mg/dL Salicylates (2.8-20.0) mg/dL Acetaminophen 5.0 L (10.0-30.0) ug/mL
[2022-01-09 14:08] VITALS: BP 135/97
== END 2022-01-09 14:10 | disposition home or self-care (01) ==
LOC: ED 18:36
DX: F29 Unspecified psychosis not due to a substance or known physiological condition (principal); E11.9 Type 2 diabetes mellitus without complications; F31.9 Bipolar disorder, unspecified; Z13.30 Encounter for screening examination for mental health and behavioral disorders, unspecified; Z87.891 Personal history of nicotine dependence; Z79.899 Other long term (current) drug therapy
CPT/HCPCS: 36415; 80048; 80320; 85025; 99284; G0480

== ENCOUNTER 2022-01-09 20:13 | Emergency (ER) | payer MEDICAID ==
[2022-01-09 20:22] VITALS: BP 122/90
--- NOTE | 2022-01-10 00:17 | Emergency Department Report ---
ED General Adult HPI - General Chief complaint: Psych Stated complaint: MH PUI?: No Time Seen by Provider: 01/10/22 00:08 Source: patient, EMS Mode of arrival: Stretcher Limitations: No Limitations - History of Present Illness Initial comments: This is a 51-year-old male who was brought here yesterday by his parents for medical clearance. According to the triage note patient has been having manic episode for some time now. According to the triage note patient left and walked home and the parents took him to [facility] today and they are requesting him to be medically cleared. At the time of my evaluation patient denies to be any discomfort and is calm and cooperative and denies any homicidal suicidal ideation or attempts and also denies any hallucinations such as visual, auditory, tactile. Patient denies any symptoms or discomfort Severity scale (0 -10): 0 - Related Data Home Medications Medication Instructions Recorded Confirmed Last Taken Cetirizine HCl [ZyrTEC] 10 mg PO DAILY 12/29/16 04/17/17 04/16/17 Efavirenz/Emtricit/Tenofovr Df 1 each PO QDAY 12/29/16 04/17/17 04/16/17 [Atripla Tablet] Fluticasone [Flonase] 2 spray NS QDAY 12/29/16 04/17/17 04/16/17 Melatonin/Pyridoxine HCl (B6) 10 mg PO QHS 12/29/16 04/17/17 04/16/17 [Melatonin 10 mg Tablet] lamoTRIgine [LaMICtal] 200 mg PO QDAY 12/29/16 04/18/17 04/17/17 risperiDONE [RisperDAL] 2 mg PO QHS 12/29/16 04/18/17 04/17/17 Previous Rx's Medication Instructions Recorded Last Taken Type Naproxen [Naprosyn TAB] 500 mg PO BID #30 tablet 12/29/16 04/17/17 Rx methOCARBAMOL [Robaxin TAB] 500 mg PO BID #30 tab 12/29/16 04/17/17 Rx Allergies Allergy/AdvReac Type Severity Reaction Status Date / Time sulfamethoxazole Allergy Unknown Verified 12/29/16 20:35 [From Bactrim] trimethoprim [From Bactrim] Allergy Unknown Verified 12/29/16 20:35 ED Review of Systems ROS: Stated complaint: MH Other details as noted in HPI Comment: All other systems reviewed and negative Constitutional: no symptoms reported Eyes: as per HPI ENT: as per HPI Respiratory: no symptoms reported, see HPI Cardiovascular: as per HPI Endocrine: no symptoms reported, see HPI Gastrointestinal: as per HPI Genitourinary: as per HPI Musculoskeletal: as per HPI Skin: as per HPI Neurological: as per HPI Psychiatric: as per HPI Hematological/Lymphatic: as per HPI ED Past Medical Hx - Past Medical History Previous Medical History?: Yes Hx Diabetes: Yes Hx Psychiatric Treatment: Yes (bipolar) Additional medical history: HIV - Surgical History Past Surgical History?: No - Social History Smoking Status: Former Smoker - Medications Home Medications: Home Medications Medication Instructions Recorded Confirmed Last Taken Type Cetirizine HCl [ZyrTEC] 10 mg PO DAILY 12/29/16 04/17/17 04/16/17 History Efavirenz/Emtricit/Tenofovr Df 1 each PO QDAY 12/29/16 04/17/17 04/16/17 History [Atripla Tablet] Fluticasone [Flonase] 2 spray NS QDAY 12/29/16 04/17/17 04/16/17 History Melatonin/Pyridoxine HCl (B6) 10 mg PO QHS 12/29/16 04/17/17 04/16/17 History [Melatonin 10 mg Tablet] Naproxen [Naprosyn TAB] 500 mg PO BID #30 tablet 12/29/16 04/18/17 04/17/17 Rx lamoTRIgine [LaMICtal] 200 mg PO QDAY 12/29/16 04/18/17 04/17/17 History methOCARBAMOL [Robaxin TAB] 500 mg PO BID #30 tab 12/29/16 04/18/17 04/17/17 Rx risperiDONE [RisperDAL] 2 mg PO QHS 12/29/16 04/18/17 04/17/17 History ED Physical Exam - General Limitations: No Limitations General appearance: alert, in no apparent distress - Head Head exam: Present: atraumatic, normocephalic, normal inspection - Eye Eye exam: Present: normal appearance, PERRL, EOMI Pupils: Present: normal accommodation - ENT ENT exam: Present: normal exam, normal orophraynx, mucous membranes moist - Neck Neck exam: Present: normal inspection, full ROM - Respiratory Respiratory exam: Present: normal lung sounds bilaterally - Cardiovascular Cardiovascular Exam: Present: regular rate, normal rhythm, normal heart sounds - GI/Abdominal GI/Abdominal exam: Present: soft - Extremities Exam Extremities exam: Present: normal inspection - Back Exam Back exam: Present: normal inspection, full ROM - Neurological Exam Neurological exam: Present: oriented X3, CN II-XII intact - Psychiatric Psychiatric exam: Present: normal affect, normal mood. Absent: depressed, agitated, anxious, flat affect, manic, homicidal ideation, suicidal ideation - Skin Skin exam: Present: normal color ED Course Vital Signs 01/09/22 20:21 Temperature 98.1 F Pulse Rate 94 H Respiratory 16 Rate Blood Pressure 122/90 [Right] O2 Sat by Pulse 98 Oximetry - Reevaluation(s) Reevaluation #1: 01/10/22 03:13 REEVALUATION OF PATIENT, STILL TALKING TO HIMSELF IN NO ACUTE DISTRESS. WBC ELEVATD IN 20S AND CURRENTLY WAITING FOR UA; WILL OBTAIN CXR. I DON'T SUSPECT ANY OTHER INTRA-THORACIC/ABDOMEN INFECTIOUS PHYSICAL EXAM WAS BENIGN. 01/10/22 04:53 PATIENT IS SLEEPING COMFORTABLY IN BED. CXR WITH NO PULMONARY INFILTRATION. 01/10/22 06:05 PATIENT CALM AND COPPERATIVE; I DON'T SUSPECT ANY SOURCE OF INFECTION PATIENT DENIES DYSURIA TO ME; THEREFORE EVEN IF UA REVEAL BACTERURIA, IT WOULD BE ASYMPTOAMTIC BACTERURIA WHICH WE WON'T TREAT. PATIENT IS HEMODYNAMICALLY STABLE AND AFEBRILE AND MEDICALLY CLEAR FOR DISCAHRGE. ED Medical Decision Making - Lab Data Result diagrams: 01/10/22 00:20 01/10/22 00:20 Critical care attestation.: If time is entered above; I have spent that time in minutes in the direct care of this critically ill patient, excluding procedure time. ED Disposition Clinical Impression: Well adult health check Disposition: 01 HOME / SELF CARE / HOMELESS Is pt being admited?: No Does the pt Need Aspirin: No Condition: Stable Instructions: Medical Screening Exam Referrals: PETRA MENG MD [Primary Care Provider] - 3-5 Days Time of Disposition: 06:07
[2022-01-10 00:30] LABS: Hematocrit 43.4 % (35.5-45.6); Hemoglobin 13.9 gm/dl (11.8-15.2); Mean Corpuscular HGB Conc 32 % (32-34); Mean Corpuscular Volume 82 fl (84-94); Platelet Count 366 K/mm3 (140-440); Red Blood Count 5.27 M/mm3 (3.65-5.03); Red Cell Distribution Width 15.7 % (13.2-15.2)
[2022-01-10 00:44] LABS: Alanine Aminotransferase 16 units/L (7-56); BUN/Creatinine Ratio 16; Blood Urea Nitrogen 18 mg/dL (9-20); Hemolysis Index 10
--- NOTE | 2022-01-10 03:56 | XRay Report ---
CHEST 1 VIEW INDICATION / CLINICAL INFORMATION: ELEVATD WBC. COMPARISON: None available. FINDINGS: SUPPORT DEVICES: None. HEART / MEDIASTINUM: No significant abnormality. LUNGS / PLEURA: No significant pulmonary abnormality. BONES: No significant osseous abnormality. ADDITIONAL FINDINGS: No significant additional findings. IMPRESSION: 1. No active cardiopulmonary disease. Signer Name: Ayush Evans II, MD Signed: 01/10/2022 3:52 AM Workstation Name: [id number]
[2022-01-10 04:05] LABS: Basophils % (Manual) 0 % (0.0-1.8); Eosinophils % (Manual) 0 % (0.0-4.3); Monocytes % (Manual) 0 % (0.0-7.3); Total Cells Counted 100
[2022-01-10 04:08] LABS: Large Platelets Few; Platelet Estimate Consistent w Auto; RBC Morphology Normal
== END 2022-01-10 09:55 | disposition short-term general hospital (02) ==
LOC: ED 20:13
DX: Z13.30 Encounter for screening examination for mental health and behavioral disorders, unspecified (principal); F31.9 Bipolar disorder, unspecified; E11.9 Type 2 diabetes mellitus without complications; Z88.6 Allergy status to analgesic agent; Z88.1 Allergy status to other antibiotic agents; Z91.09 Other allergy status, other than to drugs and biological substances; Z87.891 Personal history of nicotine dependence; Z79.899 Other long term (current) drug therapy
CPT/HCPCS: 36415; 71045; 80053; 84439; 84443; 85007; 85025; 99284